=== PATIENT | female | born 1970 | race Caucasian/White ===

== ENCOUNTER 2018-01-16 07:07 | Emergency (ER) | payer BC ==
[~2018-01-16 07:07] MED LIST: ACE3 PO; BUPR300T55 PO; CELE-1 PO; CLO1 PO; CLO5 PO; CLON-303 PO; FAM20 PO; GLUC-232 PO; IBU800 PO; KETO5DRO50 OP; LEV100 PO; LEV125 PO; LEVO150T7 PO; LEVO175T42 PO; LIO5 PO; LIT150 PO; LIT300CAP PO; LOR5 PO; LOR5/325 PO; METH20TA33 PO; METH5TAB85 PO; MULT-912 PO; OMEG-26 PO; PRE20 PO; TERB250T64 PO; TOPI25TA PO; TRAZ150T61 PO; TRAZ50 PO; TRAZ50TA34 PO; VEN375 PO; VENL150C61 PO
[2018-01-16] MEDS ORDERED: LEVO-3 PO (07:14)
[2018-01-16] MEDS ORDERED: CEPH500T7 PO (07:17)
--- NOTE | 2018-01-16 07:19 | ER Report ---
History and Physical Time Seen By MD: 07:19 Hx. of Stated Complaint: LEFT EAR ABSCESS SINCE LAST SUNDAY. ATTEMPT TO DRAIN AT URGENT CARE YESTERDAY WITHOUT SUCCESS. PRESENTS HERE TODAY FOR WORSENING PAIN AND SWELLING. HPI/ROS CHIEF COMPLAINT: Left ear abscess HISTORY OF PRESENT ILLNESS: Patient is a 47-year-old female here with complaints of left ear abscess. Patient was evaluated yesterday at urgent care which time they did an I&D and place patient on Keflex. Patient reports having 3 doses of Keflex. This morning, patient noticed that her swelling had increased and the area prompting evaluation. Patient is afebrile, hemodynamically stable in no acute distress. REVIEW OF SYSTEMS: Constitutional: No fever, no chills. Eyes: No discharge. ENT: + left jaime auricular swelling, erythema Skin: + left ear tenderness, edema Neurological: No focal neuro deficits Allergies: Coded Allergies: adhesive (Verified Allergy, Intermediate, RASH AFTER SENIOR CARE USE, 03/17/14) prochlorperazine (Verified Allergy, Mild, PSYCHOTIC, 03/16/14) promethazine (Verified Adverse Reaction, Mild, MENTAL STATUS CHANGES, 03/16/14) Uncoded Allergies: beesting (Allergy, Severe, ANAPHYLAXIS, 03/17/14) Home Meds Reported Medications Cephalexin 500 Mg Tab (KEFLEX 500 MG TAB) 500 Mg Tablet, 500 MG PO Q6H, #28 TAB 01/16/18 Levothyroxine Sodium (LEVOTHYROXINE SODIUM) 100 Mcg Tablet, 112 MCG PO QDAY, TAB 01/16/18 Trazodone Hcl (TRAZODONE HCL) 50 Mg Tablet, 300 MG PO QHS 03/17/14 Methylphenidate Hcl (RITALIN) 20 Mg Tablet, 20 MG PO QAM 03/16/14 Venlafaxine Hcl (Effexor Xr) 150 Mg Cap.sr.24h, 300 MG PO QDAY 06/19/11 Liothyronine Sodium (CYTOMEL (OR EQUIV)) 5 Mcg Tab, 5 MCG PO DAILY 06/19/11 Discontinued Reported Medications Methylphenidate Hcl (RITALIN) 5 Mg Tablet, 5 MG PO QPM 03/17/14 Levothyroxine Sodium (LEVOTHYROXINE SODIUM) 175 Mcg Tablet, 175 MCG PO QDAY 03/17/14 Clonazepam (Klonopin) 1 Mg Tab, 1 MG PO BID 06/19/11 Discontinued Scripts Hydrocodone Bit/Acetaminophen (HYDROCODON-ACETAMINOPHEN 5-325) 1 Each Tablet, 1 EACH PO Q4-6H for PAIN, #14 TAKE ONE TABLET BY MOUTH EVERY 4-6 HOURS NEEDED FOR PAIN Prov:THERESA CHIN MD 03/16/14 Hx Smoking: No Smoking Status: Never Smoker Constitutional Vital Sign - Last 24 Hours 01/16/18 01/16/18 07:11 08:00 Temp 98.1 Pulse 88 90 Resp 20 16 B/P (MAP) 122/98 111/91 (98) Pulse Ox 91 91 O2 Delivery Room Air Physical Exam General Appearance: The patient is alert, has no immediate need for airway protection and no signs of toxicity. NAD Eyes: Pupils equal and round no pallor or injection. ENT, Mouth: + left ear edema in the jaime auricular region, mild fluctuance Neurological: No focal neuro deficits Skin: Mild edema and erythema of right ear DIFFERENTIAL DIAGNOSIS: After history and physical exam differential diagnosis was considered for abscess, hematoma, cellulitis Medical Decision Making ED Course/Re-evaluation ED Course Patient is a 47-year-old female here with left ear abscess or hematoma in the periauricular region. Patient has been placed on Keflex by urgent care yesterday after an I&D. Patient came to the emergency department for reevaluation after having increased swelling. I&D was performed and several cc of blood was ex pressed from the site. Patient was given an IV dose of clindamycin for broadened antimicrobial coverage and a compressive dressing was placed fluid did not reaccumulate. Patient was advised to follow up closely with her PCP or to return promptly if she develop worsening swelling, fevers, rashes, worsening pain. Decision to Disposition Date: Jan 16, 2018 Decision to Disposition Time: 08:04 Depart Departure Latest Vital Signs Vital Signs Date Time Temp Pulse Resp B/P (MAP) Pulse Ox O2 Delivery O2 Flow Rate FiO2 01/16/18 08:00 90 16 111/91 (98) 91 Room Air 01/16/18 07:11 98.1 Impression: Primary Impression: Infection of left earlobe Condition: Improved Disposition: HOME OR SELF-CARE Referrals: RONNIE CHOWDHURY MD (PCP) Patient Instructions: Abscess (GEN) Additional Instructions: Please drink plenty of water. Please continue taking her Keflex until prescription is complete. You were given a dose of IV clindamycin for broadened antimicrobial coverage. Please apply pressure to the area as to not allow fluid to reaccumulate. Please follow up closely with your family doctor in the next 2 days for follow-up evaluation. HECTOR BUSH DO Jan 16, 2018 07:19
[2018-01-16] MEDS ORDERED: CLINDAMYCIN(*) 600 MG/NS 50 ML 50 ML IVPB ONE (07:20)
[2018-01-16] MEDS ORDERED: LIDOCAINE 1% MDV 200 MG/20 ML INFIL ONE (07:25)
[2018-01-16 08:00] VITALS: BP 111/91
== END 2018-01-16 08:17 | disposition home or self-care (01) ==
LOC: ER 07:24
DX: H60.02 Abscess of left external ear (principal)
CPT/HCPCS: 69000; 96365; 99284; J3490

== ENCOUNTER 2018-10-04 16:27 | Emergency (ER) | payer BC ==
[~2018-10-04 16:27] MED LIST changes: +CEPH500T7 PO; +LEVO-3 PO; -TRAZ50TA34 PO; +TRAZ50TA52 PO
--- NOTE | 2018-10-04 16:34 | ER Report ---
History and Physical Time Seen By MD: 16:30 HPI/ROS CHIEF COMPLAINT: Vaginal spotting HISTORY OF PRESENT ILLNESS: PT states that she has had light pink spotting when wiping fo rthe last 5-7 days intermittently. PT feels it is coming from her vagina and not her rectum or urine. no change in bm. no dysuria. Pt has had a partial hysterectomy. Pt called her backshoe person, Dr. Sneed, who has an appt for this coming Sunday. Pt states with the spotting she has had intermittent pain in Left pelvic area. PT is concerned about cancer. REVIEW OF SYSTEMS: Constitutional: No fever, no chills. Eyes: No discharge. ENT: No sore throat. Cardiovascular: No chest pain, no palpitations. Respiratory: No cough, no shortness of breath. Gastrointestinal: + abdominal pain, no vomiting, + spotting vaginal Genitourinary: No hematuria. Musculoskeletal: No back pain. Skin: No rashes. Neurological: No headache. Allergies: Coded Allergies: adhesive (Verified Allergy, Intermediate, RASH AFTER [facility] USE, 10/04/18) prochlorperazine (Verified Allergy, Mild, PSYCHOTIC, 10/04/18) promethazine (Verified Adverse Reaction, Mild, MENTAL STATUS CHANGES, 10/04/18) Uncoded Allergies: beesting (Allergy, Severe, ANAPHYLAXIS, 03/17/14) Home Meds Reported Medications Cephalexin 500 Mg Tab (KEFLEX 500 MG TAB) 500 Mg Tablet, 500 MG PO Q6H, #28 TAB 01/16/18 Levothyroxine Sodium (LEVOTHYROXINE SODIUM) 100 Mcg Tablet, 112 MCG PO QDAY, TAB 01/16/18 Trazodone Hcl (TRAZODONE HCL) 50 Mg Tablet, 300 MG PO QHS 03/17/14 Methylphenidate Hcl (RITALIN) 20 Mg Tablet, 20 MG PO QAM 03/16/14 Venlafaxine Hcl (Effexor Xr) 150 Mg Cap.sr.24h, 300 MG PO QDAY 06/19/11 Liothyronine Sodium (CYTOMEL (OR EQUIV)) 5 Mcg Tab, 5 MCG PO DAILY 06/19/11 Past Medical/Surgical History Pmhx: L ear abscess, PTSD, Fibromyalgia Pshx: partial hysterectomy Pfhx: Colon ca Reviewed Nurses Notes: Yes Old Medical Records Reviewed: Yes Hx Smoking: No Smoking Status: Never Smoker Hx Alcohol Use: Yes (recovering alcoholic, sober 1+ yrs) Constitutional Vital Sign - Last 24 Hours 10/04/18 10/04/18 10/04/18 10/04/18 16:27 16:30 16:35 16:57 Temp 98.5 Pulse ??? 117 98 Resp 12 B/P (MAP) 148/115 (126) 148/115 Pulse Ox 95 91 O2 Delivery Room Air 10/04/18 10/04/18 10/04/18 10/04/18 17:00 17:27 17:30 17:57 Pulse 99 94 B/P (MAP) 126/93 (104) 145/103 (117) Pulse Ox 91 93 10/04/18 18:00 B/P (MAP) 114/85 (95) Physical Exam General Appearance: The patient is alert, has no immediate need for airway protection and no signs of toxicity, + pt appears anxious Eyes: Pupils equal and round no pallor or injection, EOMI ENT: no pharyngeal erythema or exudates, Mucous membranes are moist Respiratory: There are no retractions, lungs are clear to auscultation. Cardiovascular: Regular rate and rhythm. pulses are equal and symmetrical Gastrointestinal: Abdomen is soft and non tender, no masses, bowel sounds normal, no guarding, no rigidity or rebound Pelvis: using a clear speculum no vaginal lacerations evident, no blood in v judy, no labial tears evident or bleeding Rectal, no hemorrhoids or evident bleeding, stool brown Neurological: Cranial nerves II-XII grossly intact, no sensory or motor loss Skin: Warm and dry, no rashes. Musculoskeletal: Neck is supple non tender, no vertebral tenderness Extremities are nontender, nonswollen and have full range of motion. DIFFERENTIAL DIAGNOSIS: After history and physical exam differential diagnosis was considered for ovarian cyst, fissure, rectal bleed, hematuria Medical Decision Making Data Points Laboratory Urinalysis Test 10/04/18 16:26 Urine Color Yellow Urine Clarity Slightly-cloudy Urine pH 5.0 pH (4.8-9.5) Urine Specific [place] 1.012 Urine Protein Negative mg/dL (NEGATIVE) Urine Glucose (UA) Negative mg/dL (NEGATIVE) Urine Ketones Trace mg/dL (NEGATIVE) Urine Blood Negative (NEGATIVE) Urine Nitrite Negative (NEGATIVE) Urine Bilirubin Negative (NEGATIVE) Urine Urobilinogen Negative mg/dL (0.2-1.9) Urine Leukocyte Esterase Negative (NEGATIVE) Urine RBC <1 /HPF (0-2/HPF) Urine WBC 1 /HPF (0-5/HPF) Urine Squamous Epithelial Cells Many /LPF (</=FEW) Urine Bacteria Few /HPF (NONE-FEW) Urine Mucus None /HPF (NONE-FEW) Urine HCG, Qualitative Negative (NEGATIVE) ED Course/Re-evaluation ED Course will check hemoccult, UA and pelvic US 10/04/2018 6:04:14 pm hemoccut is pending and urine also has no blood. 10/04/2018 6:25:59 pm PTs ultrasound is completed and awaiting results. Discussed with pt other options for LLQ pain. Discussed diverticulitis. Pt denies any change in bm and is not interested in CT at this time. PT is afebrile. 10/04/2018 6:32:48 pm Hemoccult is negative. Decision to Disposition Date: Oct 04, 2018 Decision to Disposition Time: 18:33 Depart Departure Latest Vital Signs Vital Signs Date Time Temp Pulse Resp B/P (MAP) Pulse Ox O2 Delivery O2 Flow Rate FiO2 10/04/18 18:00 114/85 (95) 10/04/18 17:57 94 93 10/04/18 16:35 98.5 12 Room Air Impression: Primary Impression: Pelvic pain Condition: Condition Unchanged Disposition: HOME OR SELF-CARE Referrals: LIBORIO SNEED MD 2 Days Patient Instructions: Abdominal Pain (ED) Additional Instructions: Currently there was no blood evident in your vaginal/rectal area. Keep your appointment with your continuity director on Sunday. If you start having problems with your bowel movements or develop a fever or increased pain then please return to the emergency department or your family doctor for possible cat scan. YVONNE MEDINA DO Oct 04, 2018 16:34
[2018-10-04 18:00] VITALS: BP 114/85
--- NOTE | 2018-10-04 18:50 | RADIOLOGY IMAGING REPORT ---
FACILITY: [facility] PATIENT NAME: Rayne Steen : 1970 MR: [id number] V: [id number] EXAM DATE: ORDERING PHYSICIAN: YVONNE MEDINA TECHNOLOGIST: Location: [facility] [place] Patient: Rayne Steen : 1970 Visit/Account:[id number] Date of Sevice: 10/04/2018 Examination: Pelvic ultrasound Comparison: None Available History: Left lower quadrant pain. Spotting/pink discharge. Hysterectomy in 2011. Findings: Standard endovaginal pelvic ultrasound with color flow and spectral analysis. Uterus: Hysterectomy. Midline pelvic soft tissues are unremarkable. Adnexa: Right ovary: 1.7 x 1.9 x 1.1 cm . 8 mm dominant follicle. No suspicious ovarian or adnexal mass. Nor mal arterial and venous flow is documented within the ovary on Doppler evaluation. Left ovary: 1.8 x 1.3 x 1.1 cm . No suspicious ovarian or adnexal mass. Normal arterial and venous f low is documented within the ovary on Doppler evaluation. Free fluid: None Urinary bladder: Unremarkable. IMPRESSION: 1. Hysterectomy. Visualized midline pelvic soft tissues are unremarkable. 2. Negative sonographic evaluation of the ovaries and adnexa. Report Dictated By: Willian Martinez MD at 10/04/2018 6:41 PM Report E-Signed By: Willian Martinez MD at 10/04/2018 6:43 PM WSN:[id number]
== END 2018-10-04 18:59 | disposition home or self-care (01) ==
LOC: ER 16:34
DX: R10.2 Pelvic and perineal pain (principal)
CPT/HCPCS: 76830; 81001; 81025; 82274; 99284